=== PATIENT | female | born 1940 | race Caucasian/White ===

== ENCOUNTER 2019-07-16 17:22 | Inpatient (IN) | payer MEDICARE, BC ==
[~2019-07-16] VITALS: Ht 149.9 cm; Wt 64.5 kg
[2019-07-16 18:34] LABS: HEMATOCRIT 30.3 % (36.0-48.0); HEMOGLOBIN 10.1 g/dL (12-16); MCH 30.4 pg (26.0-34.0); MCHC 33.3 g/dL (31.0-37.0); MCV 91.3 fL (80.0-100.0); MEAN PLATELET VOLUME 9.5 fL (7.4-10.4); PLATELET COUNT 142 10x3/uL (130-400); RBC 3.32 10x6/uL (4.00-5.40); RDW 16.5 % (11.5-14.5)
[2019-07-16 18:46] LABS: ALBUMIN 2.6 g/dL (3.4-5.0); ALKALINE PHOSPHATASE 97 U/L (46-116); ALT (SGPT) 28 U/L (10-68); BILIRUBIN - TOTAL 0.79 mg/dL (0.2-1.3); CALC OSMOLALITY 268 mosm/kg (275-300); CALCIUM 8.8 mg/dL (8.5-10.1); CARBON DIOXIDE 26.5 mmol/L (21.0-32.0); CHLORIDE - SERUM 95 mmol/L (98-107); CREATININE - SERUM 0.9 mg/dL (0.6-1.3); GLUCOSE 166 mg/dL (74-106); POTASSIUM - SERUM 3.9 mmol/L (3.5-5.1); PROTEIN - SERUM 6.4 g/dL (6.4-8.2); SODIUM 132 mmol/L (136-145); UREA NITROGEN 12 mg/dL (7-18); eGFR NON AFRICAN AMERICAN 64 mL/min (90-120)
[2019-07-16 18:48] LABS: WBC 0.8 10x3/uL (4.8-10.8)
[2019-07-16 18:56] LABS: PRO BNP 501 pg/mL (0-450); TROPONIN-I < 0.017 ng/mL (0.000-0.060)
[2019-07-16 19:10] LABS: EOSINOPHILS 4 % (0-7); LYMPHOCYTES 8 % (15-50); MONOCYTES 32 % (2-11); NEUTROPHILS 50 % (40-80); PLATELET ESTIMATE NORMAL
--- NOTE | 2019-07-16 19:20 | NUR ---
PT GIVEN CHICKEN BROTH, SPRITE, AND WATER TO DRINK. PT SITTING UP IN BED DENIES FURTHER COMPLAINTS.
[2019-07-16 20:30] VITALS: BP 144/77
--- NOTE | 2019-07-16 21:10 | NUR ---
PT UP TO BEDSIDE COMMODE URINE X 1
[2019-07-16 21:30] VITALS: BP 105/60
--- NOTE | 2019-07-16 21:30 | NUR ---
PT RECIEVED VIA STRETCHER FROM ER, TRANSFERS SELF, LEFT PIV INTACT WITH IVF INFUSING, ASSESSMENT COMPLETED, O2 @ 5L VIA N/C, VITALS STABLE
[2019-07-16 21:59] VITALS: BP 105/60; BMI 28.7
[2019-07-16 22:30] VITALS: BP 99/64
[2019-07-16 23:30] VITALS: BP 90/50
--- NOTE | 2019-07-16 23:30 | NUR ---
PT SLEEPING WITH NO DISTRESS NOTED
[2019-07-17] VITALS (18 sets, daily range): BP systolic 86–140; BP diastolic 52–81; Ht 149.9 cm; Wt 64.5 kg
--- NOTE | 2019-07-17 01:30 | NUR ---
PT REMAINS ASLEEP, VITALS STABLE
--- NOTE | 2019-07-17 03:00 | NUR ---
PT UP TO BSC WITH STANDBY ASSIST, VOIDED, NO C/O
[2019-07-17] MEDS ORDERED: ELIQUIS2.5 MG PO (03:23)
[2019-07-17] MEDS ORDERED: PREDNISONE20 MG PO (03:23)
[2019-07-17] MEDS ORDERED: POTASSIUM CHLO10 ME1 PO (03:24)
[2019-07-17] MEDS ORDERED: SYNTHROID50 MCG PO (03:25)
[2019-07-17] MEDS ORDERED: FUROSEMIDE20 MG PO (03:26)
[2019-07-17] MEDS ORDERED: TOPROL XL50 MG PO (03:27)
[2019-07-17] MEDS ORDERED: TRIAMTERENE-HC1 EAC3 PO (03:28)
[2019-07-17] MEDS ORDERED: OMEPRAZOLE40 MG PO (03:29)
[2019-07-17] MEDS ORDERED: SINGULAIR10 MG PO (03:29)
[2019-07-17] MEDS ORDERED: ONDANSETRON ODT8 MG PO (03:33)
[2019-07-17] MEDS ORDERED: SYMBICORT 16010.2 GM INH (03:35)
[2019-07-17] MEDS ORDERED: SPIRIVA18 MCG INH (03:37)
[2019-07-17 03:56] LABS: BASOPHILS 1.7 % (0-2); EOSINOPHILS 0 % (0-7); IMMATURE GRANULOCYTES 0.8 % (0-5); LYMPHOCYTES 10.7 % (15-50); MCH 30.2 pg (26.0-34.0); MCHC 33.1 g/dL (31.0-37.0); MCV 91.5 fL (80.0-100.0); MEAN PLATELET VOLUME 9.1 fL (7.4-10.4); MONOCYTES 9.9 % (2-11); NEUTROPHILS 76.9 % (40-80); RDW 16.3 % (11.5-14.5)
[2019-07-17 04:01] LABS: APTT 37.7 SECONDS (22.8-39.4); INR 1.3 (0.85-1.17); PROTIME 15.7 SECONDS (11.6-15.0)
[2019-07-17 04:02] LABS: D-DIMER-QUANTITATIVE 1.01 ug/mLFEU (0.20-0.54); HEMATOCRIT 23.6 % (36.0-48.0); HEMOGLOBIN 7.8 g/dL (12-16); PLATELET COUNT 113 10x3/uL (130-400); RBC 2.58 10x6/uL (4.00-5.40)
[2019-07-17 04:03] LABS: WBC 1.2 10x3/uL (4.8-10.8)
[2019-07-17 04:13] LABS: APPEARANCE CLEAR (CLEAR); BILIRUBIN NEGATIVE (NEGATIVE); COLOR YELLOW (YELLOW); GLUCOSE NEGATIVE (NEGATIVE); KETONE NEGATIVE (NEGATIVE); NITRITE NEGATIVE (NEGATIVE); PROTEIN NEGATIVE (NEGATIVE); SPECIFIC GRAVITY 1.015 (1.005-1.020); UROBILINOGEN NORMAL (NORMAL)
[2019-07-17 04:14] LABS: BACTERIA FEW /hpf (NONE SEEN); EPITHELIAL CELLS 0-5 /hpf (0-5); RED CELLS - URINE NONE SEEN /hpf (0-5); WHITE CELLS - URINE 0-5 /hpf (0-5); YEAST <1+ /hpf (NONE SEEN)
[2019-07-17 04:29] LABS: ALKALINE PHOSPHATASE 69 U/L (46-116); AMYLASE - SERUM 21 U/L (25-115); BILIRUBIN - TOTAL 0.47 mg/dL (0.2-1.3); CALC OSMOLALITY 283 mosm/kg (275-300); CARBON DIOXIDE 24.5 mmol/L (21.0-32.0); CHLORIDE - SERUM 109 mmol/L (98-107); CREATININE - SERUM 0.7 mg/dL (0.6-1.3); GLUCOSE 135 mg/dL (74-106); MAGNESIUM - SERUM 1.4 mg/dL (1.8-2.4); PHOSPHOROUS 2.7 mg/dL (2.5-4.9); POTASSIUM - SERUM 3.6 mmol/L (3.5-5.1); PRO BNP 470 pg/mL (0-450); SODIUM 142 mmol/L (136-145); THYROID STIMULATING HORMONE 0.44 uIU/mL (0.36-3.74); UREA NITROGEN 9 mg/dL (7-18); eGFR NON AFRICAN AMERICAN 86 mL/min (90-120)
[2019-07-17 04:31] LABS: ALBUMIN 1.9 g/dL (3.4-5.0); ALT (SGPT) 20 U/L (10-68); LIPASE 40 U/L (73-393); PROTEIN - SERUM 4.4 g/dL (6.4-8.2); TROPONIN-I < 0.017 ng/mL (0.000-0.060)
[2019-07-17 04:33] LABS: CALCIUM 6.5 mg/dL (8.5-10.1)
--- NOTE | 2019-07-17 04:49 | NUR ---
LAB CALLED CRITCAL CALCIUM 6.5, CORRECTED CALCIUM IS 8.2, RESULTS NOT CALLED
--- NOTE | 2019-07-17 06:22 | NUR ---
PT AWAKE, VOICES NEEDS, GIVEN PO MEDS, NO C/O
--- NOTE | 2019-07-17 07:00 | NUR ---
REPORT RECIEVED.. PATIENT DENIES NEEDS AND PAIN. PATIENT IS ALERT AND ORIENTED. NO DISTRESS NOTED. VSS. WILL CONTINUE TO MONITOR.
--- NOTE | 2019-07-17 09:17 | NUR ---
SPUTUM CULTURE COLLECTED.
--- NOTE | 2019-07-17 11:27 | NUR ---
REPORT GIVEN TO LAKESHIA ORTEGA.
--- NOTE | 2019-07-17 12:00 | NUR ---
RCVED PT VIA WHEELCHAIR/HOSPITAL STAFF FROM ICU. CURRENTLY RCVING 3 L VIA NC. IV LOCATED TO RIGHT FOREARM. NO S/S OF DISTRESS AT THIS TIME, WILL CONT TO MONITOR. PT DENIES NEEDS AT THIS TIME OTHER THAN HER LUNCH WHICH THE ICU NURSE IS BRINGING BACK OVER TO HER.
--- NOTE | 2019-07-17 14:55 | NUR ---
Called Marisol REPORTING PROCESS CONSULTANT notified of H&H, no new orders at this time.
--- NOTE | 2019-07-17 15:02 | NUR ---
new orders entered by Nicole notified Dr Barakat of consult as asked by Marisol orourke
--- NOTE | 2019-07-17 16:29 | MORECARE ---
CASE MANAGEMENT DISCHARGE SUMMARY PATIENT: BEL DICKENS UNIT: [id number] ADM DATE: 07/16/19 AGE: 78 : 40 SEX: F ROOM/BED: D.2229 AUTHOR: SHANNON PYLE PHYSICIAN: REFERRING PHYSICIAN: ALIX MARQUEZ MD DATE OF SERVICE: 07/17/19 Discharge Plan Patient Name: BEL DICKENS Facility: [facility]:[place] : 1940 Planned Disposition: Home with Home Health Anticipated Discharge Date: Discharge Date: Expected LOS: Initial Reviewer: [id number] Initial Review Date: 07/17/2019 Generated: 07/17/19 5:29 pm Patient Name: BEL DICKENS Page [id number] at 1620 All edits/amendments must be made on the electronic document DICTATION DATE: 07/17/191628 HEAD BAKER: HUY 07/[birth year] RPT#: [id number] DC DATE: STATUS: ADM IN [facility] [address] [place] [address] END OF REPORT
--- NOTE | 2019-07-17 16:39 | MORECARE ---
CASE MANAGEMENT DISCHARGE SUMMARY PATIENT: BEL TRIVEDI UNIT: [id number] ADM DATE: 07/16/19 AGE: 78 : 40 SEX: F ROOM/BED: D.2229 AUTHOR: EDENILSON,DOC PHYSICIAN: REFERRING PHYSICIAN: ALIX MARQUEZ MD DATE OF SERVICE: 07/17/19 Discharge Plan Patient Name: BEL TRIVEDI Facility: [facility]:[place] : 1940 Planned Disposition: Home with Home Health Anticipated Discharge Date: Discharge Date: Expected LOS: Initial Reviewer: [id number] Initial Review Date: 07/17/2019 Generated: 07/17/19 5:39 pm Comments DCP- Discharge Planning Updated by [id number]: Emilee Mendez on 07/17/19 3:[address] Patient Name: BEL TRIVEDI Admission Status: ER Accout number: [id number] Admission Date: 07-16-2019 : 1940 Admission Diagnosis: Attending: ALIX MARQUEZ Current LOS: 1 Anticipated DC Date: Planned Disposition: Home with Home Health Primary Insurance: MEDICARE A & B Discharge Planning Comments: CM met with patient to discuss discharge planning/needs, she is alone in the room. She states that she lives with her in a safe environment. She states that [facility] in [place] has been having a nurse see her weekly. She is independent with all ADL's. I discussed the availability of inpatient rehab, SNF, home health and DME. She states her plan is to return home with home health. She has oxygen and nebulizer from [facility] Patient. She denies other DME needs. CM will continue to follow and assist with discharge planning/needs. Party Host: Emilee Mendez DCPIA - Discharge Planning Initial Assessment Updated by [id number]: Emilee Mendez on 07/17/19 4:31 pm * Is the patient Alert and Oriented? Yes * How many steps to enter\exit or inside your home? 2w/rails/0 * PCP Dr. Ardon in [place] * Pharm[facility] in [place] * Preadmission Environment Home with Family * ADLs Partial Dependent * Partial ADLs (Assistance needed) Ambulation * Equipment Bedside Commode Nebulizer Other Oxygen Walker * Other Equipment Portable oxygen * List name and contact numbers for known caregivers / representatives who currently or will assist patient after discharge: Fan Trivedi - spouse - Home [phone] * Verbal permission to speak to the caregivers and representatives has been obtained from the patient. Yes * Community resources currently utilized Home Health * Please name any agencies selected above. [facility] in [place] * Additional services required to return to the preadmission environment? No * Can the patient safely return to the preadmission environment? Yes * Has this patient been hospitalized within the prior 30 days at any hospital? No Coverage Notice Reviewer: [id number] Susan Mendez Notice Issued Date-Time: 07/17/2019 16:33 Notice Type: Patient Choice Letter Notice Delivered To: Patient Relationship to Patient: Self Certified Medical Technician Name: Delivery Method: HAND - Hand Delivered Lovely Days: Prior Verbal Notification: Recipient Understood Notice: Yes Recipient Signature: Yes Med Rec Note Co-signed by Attending: Coverage Notice Comment: RAY for [facility] in [place] and [facility] Patient Last DP export: 07/17/19 3:30 pm Patient Name: BEL TRIVEDI Page [phone] at 1639 All edits/amendments must be made on the electronic document DICTATION DATE: 07/17/19 163 LABORATORY GENETICIST: HYU 07/17/19 1639 RPT#: [id number] DC DATE: STATUS: ADM IN [facility] [address] [place] [address] END OF REPORT
--- NOTE | 2019-07-17 17:40 | NUR ---
GAVE PT SPUTUM CUP AND INSTRUCTED ON HOW TO USE AND THE NEED FOR A RESP CULTURE.
--- NOTE | 2019-07-17 19:02 | NUR ---
PT REPORTS SHAKINESS AFTER BREATHING TREATMENT, CONTACTED RESPIRATORY AND THEY SAID THIS WAS NORMAL R/T THE TREATMENT THEY RCVD.
--- NOTE | 2019-07-17 23:51 | NUR ---
PATIENT IN BED WITH WATER AND CALL LIGHT IN REACH. BED LOW SIDERAILS UP X2 RESERVE RIGHT ARM. IV INTACT AND PATEN TO LEFT FR WITH NS PER ORDERS. UP WITH ASSIST. NONSKID SCOKS IN PLACE. NO S/S OF DISTRESS.
[2019-07-18] VITALS (12 sets, daily range): BP systolic 114–140; BP diastolic 62–86
--- NOTE | 2019-07-18 03:28 | NUR ---
PATIENT RESEVED 1 UNIT PRBS WITH NO ADVERE REACTION NOTED AT THIS TIMEM STARTED AT 2330 COMPLETED 0245.
[2019-07-18 06:53] LABS: MCH 30.1 pg (26.0-34.0); MCHC 33.9 g/dL (31.0-37.0); MEAN PLATELET VOLUME 9.4 fL (7.4-10.4); RDW 17.9 % (11.5-14.5)
[2019-07-18 07:11] LABS: HEMATOCRIT 29.8 % (36.0-48.0); HEMOGLOBIN 10.1 g/dL (12-16); MCV 88.7 fL (80.0-100.0); PLATELET COUNT 151 10x3/uL (130-400); RBC 3.36 10x6/uL (4.00-5.40); WBC 9.8 10x3/uL (4.8-10.8)
[2019-07-18 07:13] LABS: ALBUMIN 2.2 g/dL (3.4-5.0); ALKALINE PHOSPHATASE 74 U/L (46-116); BILIRUBIN - TOTAL 0.57 mg/dL (0.2-1.3); CALCIUM 7.5 mg/dL (8.5-10.1); CARBON DIOXIDE 27.2 mmol/L (21.0-32.0); CHLORIDE - SERUM 108 mmol/L (98-107); CREATININE - SERUM 0.7 mg/dL (0.6-1.3); GLUCOSE 114 mg/dL (74-106); MAGNESIUM - SERUM 1.7 mg/dL (1.8-2.4); PHOSPHOROUS 2.3 mg/dL (2.5-4.9); POTASSIUM - SERUM 3.2 mmol/L (3.5-5.1); SODIUM 145 mmol/L (136-145); eGFR NON AFRICAN AMERICAN 86 mL/min (90-120)
[2019-07-18 07:14] LABS: ALT (SGPT) 28 U/L (10-68); CALC OSMOLALITY 286 mosm/kg (275-300); UREA NITROGEN 5 mg/dL (7-18)
--- NOTE | 2019-07-18 08:45 | NUR ---
PATIENT IN BED WITH IV INTACT. NO COMPLAINTS OR SIGNS OF DISTRESS. FAMILY AT BEDSIDE. CALL LIGHT WITHIN REACH.
[2019-07-18 09:38] LABS: ANISOCYTOSIS OCC; CRENATED CELLS OCC; LYMPHOCYTES 4 % (15-50); MONOCYTES 8 % (2-11); NEUTROPHILS 80 % (40-80); PLATELET ESTIMATE NORMAL; TOXIC GRANULATION OCC
--- NOTE | 2019-07-18 18:40 | NUR ---
PATIENT IN BED WITH NO COMPLAINTS AT THIS TIME. IV INTACT. CALL LIGHT WITHIN REACH.
--- NOTE | 2019-07-18 19:45 | NUR ---
EVENING ROUNDS MADE, WILL CONTINUE POC. PATIENT IS A/OX4, UP WITH ASSIST. NO S/SX OF DISTRESS NOTED. RR EVEN AND UNLABORED. IV TO LT WRIST IS PATENT, INFUSING NS @125ML/HR, DRSG IS C/D/I. PATIENT DENIES FURTHER NEEDS AT THIS TIME. CL IN REACH, BED LOCKED AND LOWERED. WILL CTM.
--- NOTE | 2019-07-19 01:10 | NUR ---
I have reviewed this patient and I concur with the Shift Assessment completed by the Licensed Practical Nurse today this shift.
[2019-07-19 05:08] VITALS: BP 136/83
--- NOTE | 2019-07-19 07:15 | NUR ---
PT SITTING UP ON SIDE OF BED, ALERT AND ORIENTED, NO S/S OF DISTRESS. CURRENTLY RCVING 3L VIA NC. IV LOCATED TO LEFT WRIST RUNNING NS @ 125. DENIES PAIN OR ANY OTHER NEEDS AT THIS TIME, WILL CONT TO MONITOR.
[2019-07-19 07:17] LABS: CALC OSMOLALITY 284 mosm/kg (275-300); CARBON DIOXIDE 27.4 mmol/L (21.0-32.0); CHLORIDE - SERUM 108 mmol/L (98-107); CREATININE - SERUM 0.7 mg/dL (0.6-1.3); GLUCOSE 108 mg/dL (74-106); MAGNESIUM - SERUM 1.5 mg/dL (1.8-2.4); SODIUM 144 mmol/L (136-145); UREA NITROGEN 4 mg/dL (7-18); eGFR NON AFRICAN AMERICAN 86 mL/min (90-120)
[2019-07-19 07:18] LABS: BASOPHILS 0.3 % (0-2); EOSINOPHILS 0 % (0-7); HEMATOCRIT 33.1 % (36.0-48.0); HEMOGLOBIN 11.2 g/dL (12-16); IMMATURE GRANULOCYTES 11.1 % (0-5); LYMPHOCYTES 1.2 % (15-50); MCH 29.9 pg (26.0-34.0); MCHC 33.8 g/dL (31.0-37.0); MCV 88.5 fL (80.0-100.0); MEAN PLATELET VOLUME 9.8 fL (7.4-10.4); MONOCYTES 1.9 % (2-11); NEUTROPHILS 85.5 % (40-80); PLATELET COUNT 202 10x3/uL (130-400); RBC 3.74 10x6/uL (4.00-5.40); RDW 18.9 % (11.5-14.5); WBC 28.9 10x3/uL (4.8-10.8)
[2019-07-19 07:44] LABS: POTASSIUM - SERUM 3.8 mmol/L (3.5-5.1)
[2019-07-19 07:45] LABS: PHOSPHOROUS 1.5 mg/dL (2.5-4.9)
[2019-07-19 08:50] VITALS: BP 151/85
--- NOTE | 2019-07-19 11:34 | NUR ---
PHOPHORUS OF 1.5 REPORTED TO FABY BURNETT. TREATED FIRST ROUND, 2 MORE TO GO.
[2019-07-19 12:14] VITALS: BP 136/73
[2019-07-19 15:53] VITALS: BP 144/72
--- NOTE | 2019-07-19 19:00 | NUR ---
BEDSIDE REPORT RECEIVED AND CARE OF PT ASSUMED. PT SITTING UP ON SIDE OF BED AT THIS TIME. IV TO LEFT HAND PATENT WITH NS INFUSING AT 60 ML/HR. O2 IN USE VIA NC AT 3L. WILL MONITOR FOR NEEDS.
[2019-07-19 19:54] VITALS: BP 151/87
--- NOTE | 2019-07-19 20:57 | NUR ---
HS MEDICATIONS GIVEN, TO INCLUDE FINAL DOSE OF NEUTRA PHOS MIXED WITH JUICE PER ELECTROLYTE PROTOCOL.
[2019-07-20] VITALS: BP 162/94
--- NOTE | 2019-07-20 00:09 | NUR ---
PT C/O SOB AND SPO2 93% ON 3L. CALLED RESPIRATORY TO EVAL FOR PRN UPDRAFT [place].
[2019-07-20 04:00] VITALS: BP 160/92
--- NOTE | 2019-07-20 04:45 | NUR ---
CALLED DR CHANG TO REPORT PT HAS HAD SEVERAL EPISODES OF DIARRHEA TONIGHT. ORDER RECEIVED TO TEST FOR CDT AND START ON FLAGYL 500 MG IVP Q8HRS. VERBAL TO ORDER IMMODIUM PRN IF NEGATIVE FOR CDT.
--- NOTE | 2019-07-20 06:23 | NUR ---
LAB DECLINED TO TEST STOOL SAMPLE IT WAS NOT "WATERY" ENOUGH. I WILL NOT PLACE ORDER FOR IMMODIUM DUE TO STILL NOT KNOWING IF PT HAS CDT OR NOT. ANA STARTED PER ORDER.
[2019-07-20 06:44] LABS: CALCIUM 8.2 mg/dL (8.5-10.1); CARBON DIOXIDE 28.4 mmol/L (21.0-32.0); CHLORIDE - SERUM 107 mmol/L (98-107); CREATININE - SERUM 0.7 mg/dL (0.6-1.3); GLUCOSE 121 mg/dL (74-106); MAGNESIUM - SERUM 1.5 mg/dL (1.8-2.4); PHOSPHOROUS 1.8 mg/dL (2.5-4.9); SODIUM 145 mmol/L (136-145); eGFR NON AFRICAN AMERICAN 86 mL/min (90-120)
[2019-07-20 06:51] LABS: CALC OSMOLALITY 287 mosm/kg (275-300); UREA NITROGEN 6 mg/dL (7-18)
[2019-07-20 06:52] LABS: POTASSIUM - SERUM 2.8 mmol/L (3.5-5.1)
[2019-07-20 07:35] LABS: HEMATOCRIT 31.4 % (36.0-48.0); HEMOGLOBIN 10.7 g/dL (12-16); MCH 30.2 pg (26.0-34.0); MCHC 34.1 g/dL (31.0-37.0); MCV 88.7 fL (80.0-100.0); MEAN PLATELET VOLUME 9.4 fL (7.4-10.4); PLATELET COUNT 185 10x3/uL (130-400); RBC 3.54 10x6/uL (4.00-5.40); RDW 19.1 % (11.5-14.5); WBC 29.7 10x3/uL (4.8-10.8)
[2019-07-20 08:01] VITALS: BP 153/92
[2019-07-20 08:27] LABS: EOSINOPHILS 1 % (0-7); LYMPHOCYTES 5 % (15-50); MONOCYTES 10 % (2-11); NEUTROPHILS 78 % (40-80); PLATELET ESTIMATE NORMAL
[2019-07-20 13:00] VITALS: BP 136/85
[2019-07-20 13:26] LABS: MAGNESIUM - SERUM 1.5 mg/dL (1.8-2.4); POTASSIUM - SERUM 3.5 mmol/L (3.5-5.1)
--- NOTE | 2019-07-20 13:32 | NUR ---
NUTRITION F/U CHART REVIEWED, PT VISIT. PT TOLERATING LOW RESIDUE DIET WITH 50 TO 75% INTAKE RECENT MEALS. WILL CONTINUE TO PROVIDE DIET, MONITOR PO INTAKE. RD FOLLOWING
[2019-07-20 16:41] VITALS: BP 124/82
--- NOTE | 2019-07-20 19:00 | NUR ---
BEDSIDE REPORT RECEIVED AND CARE OF PT ASSUMED. PT SITTING UP ON SIDE OF BED. O2 IN USE VIA NC AT 3L. TELEMETRY IN PLACE PER ORDER. WILL MONITOR FOR NEEDS.
[2019-07-20 20:00] VITALS: BP 120/80
--- NOTE | 2019-07-20 21:11 | NUR ---
HS MEDICATIONS GIVEN. WILL CONTINUE TO MONITOR FOR NEEDS.
[2019-07-21] VITALS: BP 154/91
[2019-07-21 04:00] VITALS: BP 155/91
[2019-07-21 07:19] LABS: HEMATOCRIT 31.8 % (36.0-48.0); HEMOGLOBIN 10.8 g/dL (12-16); MCH 30.3 pg (26.0-34.0); MCV 89.1 fL (80.0-100.0); MEAN PLATELET VOLUME 9.5 fL (7.4-10.4); PLATELET COUNT 167 10x3/uL (130-400); RBC 3.57 10x6/uL (4.00-5.40)
[2019-07-21 07:22] LABS: CALC OSMOLALITY 289 mosm/kg (275-300); CALCIUM 8.3 mg/dL (8.5-10.1); CARBON DIOXIDE 31.2 mmol/L (21.0-32.0); CHLORIDE - SERUM 105 mmol/L (98-107); CREATININE - SERUM 0.7 mg/dL (0.6-1.3); GLUCOSE 148 mg/dL (74-106); MAGNESIUM - SERUM 1.6 mg/dL (1.8-2.4); PHOSPHOROUS 2.7 mg/dL (2.5-4.9); POTASSIUM - SERUM 3.6 mmol/L (3.5-5.1); SODIUM 144 mmol/L (136-145); UREA NITROGEN 12 mg/dL (7-18); eGFR NON AFRICAN AMERICAN 86 mL/min (90-120)
[2019-07-21 07:53] LABS: EOSINOPHILS 1 % (0-7); LYMPHOCYTES 1 % (15-50); MONOCYTES 2 % (2-11); NEUTROPHILS 88 % (40-80); PLATELET ESTIMATE NORMAL; TOXIC GRANULATION 2+
[2019-07-21 07:57] VITALS: BP 158/91
--- NOTE | 2019-07-21 09:00 | NUR ---
ALERT AND ORIENTED SITTING UP IN CHAIR. EDEMA 1+ NOTED TO BLE. LASIX GIVEN TO ASSIST WITH EDEMA PER ORDER. LUNGS CTA WITH SOB WITHOUT EXERTION. O2 3L N/C WITH TELEMETRY INTACT. S/L TO RT. WRIST WITH NO S/S OF INFECTION/INFILTRATION ENCOURAGED TO USE CALL LIGHT FOR ASSIST
[2019-07-21 12:58] VITALS: BP 103/82
--- NOTE | 2019-07-21 13:50 | NUR ---
IV DISCONTINUED AND VERBALIZED UNDERSTANDING OF DISCHARGE INSTRUCTIONS. STABLE AT TIME OF DEPARTURE LEAVING POV WITH FAMILY.
[2019-07-21 16:07] VITALS: BP 150/96
--- NOTE | 2019-07-21 19:00 | NUR ---
BEDSIDE REPORT RECEIVED AND CARE OF PT ASSUMED. PT SITTING UP IN CHAIR AT THIS TIME. IV TO LEFT WRIST SALINE LOCKED. WILL MONITOR FOR NEEDS.
[2019-07-21 19:45] VITALS: BP 144/83
--- NOTE | 2019-07-21 20:17 | NUR ---
HS MEDICATIONS GIVEN. RT IN ROOM ATTACHING HUMIDIFICATION TO O2, PT C/O NASAL DRYNESS AND HAD NOSEBLEED EARLIER TODAY.
--- NOTE | 2019-07-21 21:40 | NUR ---
IV TO LEFT WRIST OCCLUDED AND RED. REMOVED WITH CATHETER TIP INTACT. LEFT ARM COVERED IN BRUISES...PT IS RESERVE RIGHT ARM. ACCESSED LEFT INFUSAPORT USING 19 GUAGE ROSADO NEEDLE...FLUSHES WELL AND HAS GOOD BLOOD RETURN.
[2019-07-22] VITALS: BP 118/72; BP 151/84
[2019-07-22 04:00] VITALS: BP 130/76
--- NOTE | 2019-07-22 06:26 | NUR ---
JANELL BLOOD FROM [facility] FOR AM LABS AND DELIVERED TO STAFF MIDWIFE/APPRENTICESHIP DIRECTOR.
[2019-07-22 06:59] LABS: BASOPHILS 0.3 % (0-2); EOSINOPHILS 0 % (0-7); HEMATOCRIT 35.8 % (36.0-48.0); IMMATURE GRANULOCYTES 7.2 % (0-5); LYMPHOCYTES 2.8 % (15-50); MCHC 33.5 g/dL (31.0-37.0); MCV 89.5 fL (80.0-100.0); MEAN PLATELET VOLUME 9.2 fL (7.4-10.4); MONOCYTES 2.4 % (2-11); NEUTROPHILS 87.3 % (40-80); PLATELET COUNT 167 10x3/uL (130-400); RDW 18.8 % (11.5-14.5); WBC 21.9 10x3/uL (4.8-10.8)
[2019-07-22 07:06] LABS: CALC OSMOLALITY 285 mosm/kg (275-300); CALCIUM 8.2 mg/dL (8.5-10.1); CHLORIDE - SERUM 100 mmol/L (98-107); CREATININE - SERUM 0.7 mg/dL (0.6-1.3); GLUCOSE 142 mg/dL (74-106); MAGNESIUM - SERUM 1.6 mg/dL (1.8-2.4); PHOSPHOROUS 3.2 mg/dL (2.5-4.9); POTASSIUM - SERUM 3.1 mmol/L (3.5-5.1); SODIUM 142 mmol/L (136-145); UREA NITROGEN 15 mg/dL (7-18); eGFR NON AFRICAN AMERICAN 86 mL/min (90-120)
[2019-07-22 07:07] LABS: CARBON DIOXIDE 11.7 mmol/L (21.0-32.0)
--- NOTE | 2019-07-22 07:59 | NUR ---
ALERT AND ORIENTED UP AMBULATING IN ROOM LT. INFUSAPORT ACCESSED AND S/L. TELEMETRY INTACT. O2 3L N/C. POTASSIUM AND MAGNESIUM LOW AND WILL GIVE PER PROTOCOL.O2 3L N/C LUNGS CTA. ABDOMEN SOFT WITH BS NOTED. ENCOURAGED TO USE CALL LIGHT FOR ASSIST.
[2019-07-22 08:28] VITALS: BP 144/86
[2019-07-22 12:51] VITALS: BP 119/61
[2019-07-22 16:38] VITALS: BP 140/85
--- NOTE | 2019-07-22 19:20 | NUR ---
SITTING UP IN CHAIR. ALERT AND ORIENTED X4. RESP IRREG. SOB WITH MIN EXERTION. O2 @3L/NC. NONPROD COUGH. EDEMA NOTED TO BLE. GEN WEAKNESS NOTED. AMB. LT CHEST WALL MEDIPORT IS SALINE LOCKED. DENIES ANY PAIN. TELEMETRY SHOWS SR WITH RATE OF 88. TALKATIVE WITH STAFF. NO DISTRESS. CL IN REACH.
[2019-07-22 20:00] VITALS: BP 120/78
--- NOTE | 2019-07-22 21:30 | NUR ---
IN BED NOW. STATES, SHE DOESNT WANT V/S TAKEN AT MIDNIGHT BECAUSE SHE WANTS TO REST. CL IN REACH.
--- NOTE | 2019-07-23 02:28 | NUR ---
LYING IN BED WITH EYES CLOSED. RESP EVEN AND NONLABORED. O2 IN USE. NO DISTRESS. CL IN REACH. HAS RESTED WELL SO FAR THIS SHIFT.
[2019-07-23 04:00] VITALS: BP 140/86
[2019-07-23 05:20] LABS: HEMOGLOBIN 11.8 g/dL (12-16); MCH 30.5 pg (26.0-34.0); MCHC 33.7 g/dL (31.0-37.0); MCV 90.4 fL (80.0-100.0); MEAN PLATELET VOLUME 9.6 fL (7.4-10.4); PLATELET COUNT 147 10x3/uL (130-400); RBC 3.87 10x6/uL (4.00-5.40); RDW 18.9 % (11.5-14.5); WBC 18.2 10x3/uL (4.8-10.8)
[2019-07-23 05:27] LABS: ALBUMIN 2.6 g/dL (3.4-5.0); BILIRUBIN - TOTAL 0.66 mg/dL (0.2-1.3); CALCIUM 8.1 mg/dL (8.5-10.1); CARBON DIOXIDE 39.6 mmol/L (21.0-32.0); CREATININE - SERUM 0.8 mg/dL (0.6-1.3); POTASSIUM - SERUM 3.6 mmol/L (3.5-5.1); PROTEIN - SERUM 5.5 g/dL (6.4-8.2)
--- NOTE | 2019-07-23 07:15 | NUR ---
PT SITTING UP IN CHAIR AT BEDSIDE. NO ACUTE DISTRESS NOTED AT THIS TIME. REPORTS PAIN 0/10 AT THIS TIME. O2 @ 3L NC IN PLACE. LEFT CHEST PORT ACESSED AND SALINE LOCKED. SITE WITHOUT REDNESS OR EDEMA. DENIES FURTHER NEEDS AT THIS TIME. CL WITHIN REACH. ENCOURAGED TO CALL WITH NEEDS. CONTINUE POC
[2019-07-23 08:37] VITALS: BP 139/75
[2019-07-23] MEDS ORDERED: CARDIZEM CD120 MG PO (09:26)
[2019-07-23] MEDS ORDERED: TOPROL XL PO (09:26)
[2019-07-23] MEDS ORDERED: FUROSEMIDE20 MG PO (09:28)
[2019-07-23] MEDS ORDERED: FLAGYL500 MG PO (09:32)
[2019-07-23 09:37] LABS: LYMPHOCYTES 3 % (15-50); MONOCYTES 5 % (2-11); NEUTROPHILS 87 % (40-80); PLATELET ESTIMATE NORMAL
[2019-07-23 09:38] LABS: ANISOCYTOSIS OCC; HYPOCHROMASIA OCC; POLYCHROMASIA OCC
--- NOTE | 2019-07-23 10:43 | MORECARE ---
CASE MANAGEMENT DISCHARGE SUMMARY PATIENT: BEL TRIVEDI UNIT: [id number] ADM DATE: 07/16/19 AGE: 78 : 40 SEX: F ROOM/BED: D.2229 AUTHOR: SHANNON PYLE PHYSICIAN: REFERRING PHYSICIAN: ALIX MARQUEZ MD DATE OF SERVICE: 07/23/19 Discharge Plan Patient Name: BEL TRIVEDI Facility: [facility]:[place] : 1940 Planned Disposition: Home with Home Health Anticipated Discharge Date: Discharge Date: Expected LOS: Initial Reviewer: [id number] Initial Review Date: 07/17/2019 Generated: 07/23/19 11:42 am Comments DCP- Discharge Planning Updated by [id number]: Emilee Mendez on 07/23/19 9:[address] Patient Name: BEL TRIVEDI Encounter No: [id number] : 1940 Primary Insurance: MEDICARE A & B Anticipated DC Date: Planned Disposition: Home with Home Health External Planned Provider: : DCP follow-up note: Patient and family in agreement with discharge plan. No changes to plan. I called [facility] in [place] and they will resume [facility]. I spoke with Mel at [facility]. Updated clinical and order faxed to [facility] in [place]. Case management will follow and assist as needed. Emilee Mendez DCP- Discharge Planning Updated by [id number]: Emilee Mendez on 07/17/19 3:[address] Patient Name: BEL TRIVEDI Admission Status: ER Accout number: [id number] Admission Date: 07-16-2019 : 1940 Admission Diagnosis: Attending: ALIX MARQUEZ Current LOS: 1 Anticipated DC Date: Planned Disposition: Home with Home Health Primary Insurance: MEDICARE A & B Discharge Planning Comments: CM met with patient to discuss discharge planning/needs, she is alone in the room. She states that she lives with her in a safe environment. She states that [facility] in [place] has been having a nurse see her weekly. She is independent with all ADL's. I discussed the availability of inpatient rehab, SNF, home health and DME. She states her plan is to return home with home health. She has oxygen and nebulizer from [facility] Patient. She denies other DME needs. CM will continue to follow and assist with discharge planning/needs. Milk Vendor: Emilee Mendez [facility] - Discharge Planning Initial Assessment Updated by [id number]: Emilee Mendez on 07/17/19 4:31 pm * Is the patient Alert and Oriented? Yes * How many steps to enter\exit or inside your home? 2w/rails/0 * PCP Dr. Ardon in [place] * Pharmacy [facility] in [place] * Preadmission Environment Home with Family * ADLs Partial Dependent * Partial ADLs (Assistance needed) Ambulation * Equipment Bedside Commode Nebulizer Other Oxygen Walker * Other Equipment Portable oxygen * List name and contact numbers for known caregivers / representatives who currently or will assist patient after discharge: Fan Trivedi - spouse - Home [phone] * Verbal permission to speak to the caregivers and representatives has been obtained from the patient. Yes * Community resources currently utilized Home Health * Please name any agencies selected above. [facility] in [place] * Additional services required to return to the preadmission environment? No * Can the patient safely return to the preadmission environment? Yes * Has this patient been hospitalized within the prior 30 days at any hospital? No External [facility]iders [facility] [place] Date: Service Request Date: Service Type: Resolution: Reviewer: Comments: Coverage Notice Reviewer: [id number] Susan Mendez Notice Issued Date-Time: 07/17/2019 16:33 Notice Type: Patient Choice Letter Notice Delivered To: Patient Relationship to Patient: Self Complaints Coordinator Name: Delivery Method: HAND - Hand Delivered Lovely Days: Prior Verbal Notification: Recipient Understood Notice: Yes Recipient Signature: Yes Med Rec Note Co-signed by Attending: Coverage Notice Comment: RAY for [facility] in [place] and [facility] Patient Reviewer: [id number] Susan Mendez Notice Issued Date-Time: 07/23/2019 10:00 Notice Type: IM Discharge Notice Notice Delivered To: Patient Relationship to Patient: Self Complaints Coordinator Name: Delivery Method: HAND - Hand Delivered Lovely Days: Prior Verbal Notification: Recipient Understood Notice: Yes Recipient Signature: Yes Med Rec Note Co-signed by Attending: Coverage Notice Comment: IMM explained, signed, given, copy placed in MR Last DP export: 07/17/19 3:39 pm Patient Name: BEL TRIVEDI Page 54730 at 1043 All edits/amendments must be made on the electronic document DICTATION DATE: 07/23/19 104 FURNITURE SHAMPOOER: HUY 07/23/19 1042 RPT#: [id number] DC DATE: STATUS: ADM IN [facility] [address] [place] [address] END OF REPORT
--- NOTE | 2019-07-24 15:49 | MORECARE ---
CASE MANAGEMENT DISCHARGE SUMMARY PATIENT: BEL TRIVEDI UNIT: [id number] ADM DATE: 07/16/19 AGE: 78 : 40 SEX: F ROOM/BED: D.2229 AUTHOR: SHANNON PYLE PHYSICIAN: REFERRING PHYSICIAN: ALIX MARQUEZ MD DATE OF SERVICE: 07/24/19 Discharge Plan Patient Name: BEL TRIVEDI Facility: [facility]:[place] : 1940 Planned Disposition: Home with Home Health Anticipated Discharge Date: Discharge Date: 07/23/2019 Expected LOS: Initial Reviewer: [id number] Initial Review Date: 07/17/2019 Generated: 07/24/19 4:48 pm Comments DCP- Discharge Planning Updated by [id number]: Emilee Mendez on 07/23/19 9:[address] Patient Name: BEL TRIVEDI Encounter No: [id number] : 1940 Primary Insurance: MEDICARE A & B Anticipated DC Date: Planned Disposition: Home with Home Health External Planned Provider: : DCP follow-up note: Patient and family in agreement with discharge plan. No changes to plan. I called [facility] in [place] and they will resume [facility]. I spoke with Mel at [facility]. Updated clinical and order faxed to [facility] in [place]. Case management will follow and assist as needed. Emilee Mendez DCP- Discharge Planning Updated by [id number]: Emilee Mendez on 07/17/19 3:[address] Patient Name: BEL TRIVEDI Admission Status: ER Accout number: [id number] Admission Date: 07-16-2019 : 1940 Admission Diagnosis: Attending: ALIX MARQUEZ Current LOS: 1 Anticipated DC Date: Planned Disposition: Home with Home Health Primary Insurance: MEDICARE A & B Discharge Planning Comments: CM met with patient to discuss discharge planning/needs, she is alone in the room. She states that she lives with her in a safe environment. She states that [facility] in [place] has been having a nurse see her weekly. She is independent with all ADL's. I discussed the availability of inpatient rehab, SNF, home health and DME. She states her plan is to return home with home health. She has oxygen and nebulizer from [facility] Patient. She denies other DME needs. CM will continue to follow and assist with discharge planning/needs. Surgical Services Assistant: Emilee Mendez [facility] - Discharge Planning Initial Assessment Updated by [id number]: Emilee Mendez on 07/17/19 4:31 pm * Is the patient Alert and Oriented? Yes * How many steps to enter\exit or inside your home? 2w/rails/0 * PCP Dr. Ardon in [place] * Pharmacy [facility] in [place] * Preadmission Environment Home with Family * ADLs Partial Dependent * Partial ADLs (Assistance needed) Ambulation * Equipment Bedside Commode Nebulizer Other Oxygen Walker * Other Equipment Portable oxygen * List name and contact numbers for known caregivers / representatives who currently or will assist patient after discharge: Fan Trivedi - spouse - Home [phone] * Verbal permission to speak to the caregivers and representatives has been obtained from the patient. Yes * Community resources currently utilized Home Health * Please name any agencies selected above. [facility] in [place] * Additional services required to return to the preadmission environment? No * Can the patient safely return to the preadmission environment? Yes * Has this patient been hospitalized within the prior 30 days at any hospital? No Coverage Notice Reviewer: [id number] Susan Mendez Notice Issued Date-Time: 07/17/2019 16:33 Notice Type: Patient Choice Letter Notice Delivered To: Patient Relationship to Patient: Self Bulk Sealer Operator Name: Delivery Method: HAND - Hand Delivered Lovely Days: Prior Verbal Notification: Recipient Understood Notice: Yes Recipient Signature: Yes Med Rec Note Co-signed by Attending: Coverage Notice Comment: RAY for [facility] in [place] and [facility] Home Patient Reviewer: [id number] Susan Mendez Notice Issued Date-Time: 07/23/2019 10:00 Notice Type: IM Discharge Notice Notice Delivered To: Patient Relationship to Patient: Self Bulk Sealer Operator Name: Delivery Method: HAND - Hand Delivered Lovely Days: Prior Verbal Notification: Recipient Understood Notice: Yes Recipient Signature: Yes Med Rec Note Co-signed by Attending: Coverage Notice Comment: IMM explained, signed, given, copy placed in MR Last DP export: 07/23/19 9:43 am Patient Name: BEL TRIVEDI Page [phone] at 1549 All edits/amendments must be made on the electronic document DICTATION DATE: 07/24/198 WIRE STITCHER OPERATOR: HUY 07/24/19 1548 RPT#: [id number] DC DATE:07/23/19 STATUS: DIS IN [facility] [address] [place] [address] END OF REPORT
--- NOTE | 2019-07-25 14:31 | EC ---
PATIENT:BEL DICKENS DATE OF SERVICE: 07/16/19 SEX: F MEDICAL RECORD: [id number] DATE OF : 40 LOCATION:D.MS [facility] AGE OF PATIENT: 78 ADMISSION DATE: 07/16/19 REFERRING PHYSICIAN: INTERPRETING PHYSICIAN: RAMÍREZ LOPEZ MD ECHOCARDIOGRAM REPORT ECHO CHARGES 4 ECHO COMPLETE Date: 07/17/19 CLINICAL DIAGNOSIS: HX CHF,SOB/CHEMO/FEBRILE ILLNESS ECHOCARDIOGRAPHIC MEASUREMENTS (adult normal given) AC root (d.<3.7cm) 3.1 cm LV Septum d (<1.2 cm> 1.4 cm Valve Excursion 1.5 cm LV Septum (systole) 1.9 cm Left Atria (s.<4.0cm> 3.4 cm LVPW d(<1.2cm) 1.4 cm RV (d.<2.3cm) 2.6 cm LVPW (sytole) 2.0 cm LV diastole(<5.6CM) 4.8 cm MV E-F(>70mm/sec) cm LV systole 3.2 cm LVOT Diameter 1.7 cm MV exc.(>10mm) 1.0 cm Est.ejection fraction (50-75%) % DOPPLER: LVIT cm/sec A 172 cm/sec E 132 cm/sec LA cm/sec RVSP 34 mmHg LVOT 143 cm/sec AOP1/2T m/s Asc. Ao 158 cm/sec RVOT 85 cm/sec RA cm/sec PA 107 cm/sec AV Gradient Peak 9.92 mmHg AV Mean 5.59 mmHg AV Area 2.5 cm MV Gradient Peak 13.53mmHg MV Mean 4.76 mmHg MV Area cm COMMENTS: Dining Car Server: Marina GEE Slicing Machine Tender: 1 Dr. Lopez TAPE# PACS Pericardial Effusion N DATE OF SERVICE: Echocardiogram FINDINGS: 1. Left ventricular chamber size is within normal limits. Left ventricular systolic function is normal. Overall ejection fraction estimated at 55% to 60%. 2. Left atrium is within normal limits at 3.4 cm. Right atrium and right ventricular chamber sizes are mildly dilated. 3. Valvular structures have normal structure and motion. ECHOCARDIOGRAM REPORT [id number] BEL DICKENS 4. Doppler interrogation reveals mild mitral regurgitation, mild tricuspid regurgitation. No other valvular insufficiency or stenosis. Pulmonary systolic pressure is estimated at 34 mmHg. 5. No evidence of pericardial effusion or left ventricular thrombus. TRANSINT:[id number] Voice Confirmation ID: [id number] DOCUMENT ID: [id number] RAMÍREZ LOPEZ MD at 1431 CC: [id number] DICTATION DATE: 07/18/19 030 FEED INSPECTION SUPERVISOR: 07/18/19 0314 DIS IN 07/23/19 [place] [id number] [place] [id number]
[2019-07-29 16:07] LABS: AEROBE ID Final report (()); RESULT 1 Actinomyces species (())
== END 2019-07-23 13:52 | disposition home health service (06) | DRG 871 ==
LOC: D.ER 17:22 → D.MS 19:09 → D.ICU 19:09 → D.MS 07-17 11:43
PROVIDERS: Family Medicine; Internal Medicine Nephrology; Internal Medicine Pulmonary Disease; ADMIT Family Medicine; ATTEND Family Medicine
DX: A41.9 Sepsis, unspecified organism (principal); J18.1 Lobar pneumonia, unspecified organism; D61.810 Antineoplastic chemotherapy induced pancytopenia; J44.1 Chronic obstructive pulmonary disease with (acute) exacerbation; E87.3 Alkalosis; E87.1 Hypo-osmolality and hyponatremia; D70.3 Neutropenia due to infection; R50.81 Fever presenting with conditions classified elsewhere; E87.8 Other disorders of electrolyte and fluid balance, not elsewhere classified; C50.919 Malignant neoplasm of unspecified site of unspecified female breast; I11.0 Hypertensive heart disease with heart failure; I50.9 Heart failure, unspecified; K21.9 Gastro-esophageal reflux disease without esophagitis; E03.9 Hypothyroidism, unspecified; R09.02 Hypoxemia; E83.51 Hypocalcemia; E88.09 Other disorders of plasma-protein metabolism, not elsewhere classified; E83.42 Hypomagnesemia; D64.81 Anemia due to antineoplastic chemotherapy; Z99.81 Dependence on supplemental oxygen